=== PATIENT | male | born 1960 | race Caucasian/White ===

== ENCOUNTER 2016-06-08 11:25 | Emergency (ER) | payer OTHER ==
[~2016-06-08] VITALS: Ht 180.3 cm; Wt 65.0 kg
[~2016-06-08 11:25] MED LIST: AMOXICILLIN500 MG PO; AMOXICILLIN875 MG PO; DEPAKOTE500 MG PO; DIAZEPAM10 MG PO; DICLOFENAC SODI75 MG PO; ENDOCET 5-3251 EACH PO; GABAPENTIN800 MG PO; LITHIUM CARBON300 MG PO; LITHOBID300 MG PO; MOTRIN600 MG PO; MOTRIN800 MG PO; NEURONTIN600 MG PO; NORCO 5/3251 TABLET PO; NORCO 7.5/321 TABLET PO; PERCOCET 5/31 TABLET PO; QUETIAPINE FUM100 MG PO; QUETIAPINE FUM300 MG PO; SEROQUEL12.5 MG PO; SEROQUEL300 MG PO; TORADOL10 MG PO; TYLENOL WITH C1 EACH PO; VICODIN,LORT1 TABLET PO; VOLTAREN75 MG PO
[2016-06-08 13:16] LABS: HEMATOCRIT 44.2 % (38.0-50.0); MCH 31.7 PG (29.0-34.0); MCHC 34.2 G/DL (30.0-36.0); MCV 92.9 FL (86-99); MEAN PLAT.VOLUME 12.1 uM^3 (9.0-12.4); PLATELET COUNT 242 K/uL (156-360); RBC DIS.WIDTH-SD 42.7 % (39-53); RED BLOOD COUNT 4.76 M/uL (4.00-5.50); WHITE BLOOD COUNT 11.9 K/uL (4.1-10.2)
[2016-06-08 13:22] LABS: CHLORIDE 108 mEq/L (99-109); POTASSIUM 4.5 mEq/L (3.7-5.4); SODIUM 139 mEq/L (136-147)
[2016-06-08 13:24] LABS: GLUCOSE 93 mg/dL (70-99)
[2016-06-08 13:25] LABS: ANION GAP 8 MEQ/L (2-14)
[2016-06-08 13:28] LABS: GFR ESTIMATE (CALCULATED) > 59 mL/min/
[2016-06-08 13:29] LABS: UREA NITROGEN (BUN) 11 mg/dL (9-23)
[2016-06-08] MEDS ORDERED: MOBIC15 MG PO (14:45)
[2016-06-08 14:50] VITALS: BP 109/94
== END 2016-06-08 14:51 | disposition home or self-care (01) ==
LOC: EME 11:25
DX: M70.21 Olecranon bursitis, right elbow (principal); G89.29 Other chronic pain; D72.829 Elevated white blood cell count, unspecified; F17.200 Nicotine dependence, unspecified, uncomplicated
CPT/HCPCS: 71020; 80048; 80178; 85027; 93005; 99281; 99283

== ENCOUNTER 2016-10-14 14:14 | Inpatient (IN) | payer OTHER ==
[~2016-10-14] VITALS: Ht 180.3 cm; Wt 65.6 kg
[~2016-10-14 14:14] MED LIST changes: +MOBIC15 MG PO
[2016-10-14 15:19] LABS: HEMATOCRIT 45.3 % (38.0-50.0); MCH 32.1 PG (29.0-34.0); MCHC 33.6 G/DL (30.0-36.0); MCV 95.8 FL (86-99); MEAN PLAT.VOLUME 10.3 uM^3 (9.0-12.4); PLATELET COUNT 246 K/uL (156-360); RBC DIS.WIDTH-CV 13.5 % (11.8-14.6); RED BLOOD COUNT 4.73 M/uL (4.00-5.50); WHITE BLOOD COUNT 10.8 K/uL (4.1-10.2)
[2016-10-14 15:29] LABS: CHLORIDE 108 mEq/L (99-109); POTASSIUM 4.2 mEq/L (3.7-5.4); SODIUM 141 mEq/L (136-147)
[2016-10-14 15:31] LABS: GLUCOSE 133 mg/dL (70-99)
[2016-10-14 15:32] LABS: ANION GAP 10 MEQ/L (2-14)
[2016-10-14 15:33] LABS: TOTAL BILIRUBIN 0.5 mg/dL (0.0-1.0)
[2016-10-14 15:34] LABS: SERUM ETHYL ALCOHOL < 10 mg/dL
[2016-10-14 15:35] LABS: ALKALINE PHOSPHATASE 56 IU/L (3-129); GFR ESTIMATE (CALCULATED) > 59 mL/min/
[2016-10-14 15:36] LABS: UREA NITROGEN (BUN) 12 mg/dL (9-23)
[2016-10-14] MEDS ORDERED: OXYCODONE HCL5 MG PO (18:47)
[2016-10-14 19:15] VITALS: BP 152/71
[2016-10-15 07:37] VITALS: BP 106/64
== END 2016-10-15 10:23 | disposition home or self-care (01) | DRG 885 ==
LOC: EME 14:14 → EDOF 18:09 → 1WEST 19:06
PROVIDERS: Emergency Medicine
DX: F31.9 Bipolar disorder, unspecified (principal); F63.81 Intermittent explosive disorder; F10.20 Alcohol dependence, uncomplicated; Z91.19 Patient's noncompliance with other medical treatment and regimen; Z59.0 Homelessness
CPT/HCPCS: 80053; 81003; 85027; 90839; 99281; 99285; G0480; J1630; J2060

== ENCOUNTER 2016-11-15 18:26 | Emergency (ER) | payer OTHER ==
[~2016-11-15] VITALS: Ht 177.8 cm; Wt 63.3 kg
[~2016-11-15 18:26] MED LIST changes: +OXYCODONE HCL5 MG PO
[2016-11-15 19:22] LABS: HEMATOCRIT 40.9 % (38.0-50.0); MCH 31.8 PG (29.0-34.0); MCV 96.5 FL (86-99); MEAN PLAT.VOLUME 10.5 uM^3 (9.0-12.4); NRBC (%) 0.1 /100 WBC (0-0); PLATELET COUNT 167 K/uL (156-360); RBC DIS.WIDTH-CV 13.4 % (11.8-14.6); RBC DIS.WIDTH-SD 47.6 % (39-53); RED BLOOD COUNT 4.24 M/uL (4.00-5.50); WHITE BLOOD COUNT 14.2 K/uL (4.1-10.2)
[2016-11-15 19:31] LABS: CHLORIDE 112 mEq/L (99-109); POTASSIUM 3.5 mEq/L (3.7-5.4); SODIUM 142 mEq/L (136-147)
[2016-11-15 19:33] LABS: GLUCOSE 93 mg/dL (70-99)
[2016-11-15 19:34] LABS: ANION GAP 8 MEQ/L (2-14)
[2016-11-15 19:36] LABS: SERUM ETHYL ALCOHOL < 10 mg/dL
[2016-11-15 19:37] LABS: GFR ESTIMATE (CALCULATED) > 59 mL/min/
[2016-11-15 19:38] LABS: UREA NITROGEN (BUN) 12 mg/dL (9-23)
[2016-11-15 19:40] LABS: SALICYLATE < 5.0 MG/DL (15-30)
[2016-11-15 20:10] VITALS: BP 127/68
== END 2016-11-15 20:15 | disposition home or self-care (01) ==
LOC: EME 18:26
PROVIDERS: Emergency Medicine
DX: F12.129 Cannabis abuse with intoxication, unspecified (principal); R45.851 Suicidal ideations; F31.9 Bipolar disorder, unspecified; F17.210 Nicotine dependence, cigarettes, uncomplicated
CPT/HCPCS: 80048; 85027; 90837; 99281; 99285; G0480; J1630; J2060

== ENCOUNTER 2017-08-26 09:48 | Emergency (ER) | payer OTHER ==
[~2017-08-26] VITALS: Ht 182.9 cm; Wt 64.5 kg
[2017-08-26] MEDS ORDERED: ULTRACET1 TABLET PO (11:04)
[2017-08-26] MEDS ORDERED: KEFLEX500 MG PO (11:20)
[2017-08-26 11:23] VITALS: BP 129/79
== END 2017-08-26 11:26 | disposition home or self-care (01) ==
LOC: EME 09:48
DX: G89.29 Other chronic pain (principal); L03.115 Cellulitis of right lower limb; F17.200 Nicotine dependence, unspecified, uncomplicated
CPT/HCPCS: 73564; 99281; 99283